=== PATIENT | female | born 1925 | race Caucasian/White ===

== ENCOUNTER 2016-08-07 08:54 | Emergency (ER) | payer MEDICARE, BC ==
[2016-08-07 09:28] LABS: Hematocrit 34.6 % (37.0-47.0); Hemoglobin 11.5 gm/dL (12.5-16.0); Mean Cell Volume 93.8 fl (78-100); Mean Corpuscular Hemoglobin 31.2 pg (27-31); Mean Corpuscular Hgb Conc 33.2 g/dl (32-36); Mean Platelet Volume 8.5 fl (6.0-9.5); Neutrophil # 6.5 K/mm3 (1.3-6.0); Neutrophil % 78.3 % (42-75.0); Platelet Count 386 K/mm3 (150-450); Red Blood Count 3.69 M/mm3 (4.2-5.4); Red Cell Distribution Width 14.6 % (11.5-14.0); White Blood Count 8.3 K/mm3 (4.0-10.5)
[2016-08-07 09:31] LABS: Urine Bilirubin 1 mg/dl (NEGATIVE); Urine Blood 25 /ul (NEGATIVE); Urine Ketone 15 mg/dL (NEGATIVE); Urine Nitrite Negative (NEGATIVE); Urine Protein 30 mg/dL (NEGATIVE); Urine Urobilinogen Normal (NORMAL); Urine pH 6.5 pH (5.0-7.0)
[2016-08-07 09:39] LABS: Urine Appearance Slightly Cloudy; Urine Color Dark Yellow; Urine WBC >50 /hpf (0-5)
[2016-08-07 09:40] LABS: Urine Bacteria 2+
[2016-08-07 09:41] LABS: Anion Gap 14.8 mmol/L (6.8-13.8); BUN/Creatinine Ratio 15.3 (9.0-21.6); Bilirubin, Total 0.8 mg/dL (0.0-1.1); Ca. Corrected For Albumin 8.8 mg/dL (8.4-10.2); Calcium * 8.3 mg/dL (7.9-10.9); Carbon Dioxide 25.1 mmol/L (24-32.6); Potassium 3.9 mmol/L (3.4-4.6); Total Protein 6.4 gm/dL (6.2-8.2)
--- NOTE | 2016-08-07 09:51 | ERNOTE ---
Neuro HPI ER Record Presenting Symptoms: confusion Time Seen by Provider: 08/07/16 09:35 Source: family, long term records Exam Limitations: dementia Immunizations: IMMUNIZATION HX Immunizations Up to Date Yes Allergies/Adverse Reactions: Allergies Allergy/AdvReac Type Severity Reaction Status Date / Time No Known Drug Allergies Allergy Verified 03/19/16 22:02 Home Medications: HOME MEDICATIONS Acetaminophen [Tylenol] 650 mg PO Q4H PRN 03/19/16 [Last Taken Unknown] Cranberry Fruit Extract [Cranberry] 300 mg PO DAILY 03/19/16 [Last Taken Unknown ] Donepezil HCl [Aricept] 5 mg PO HS 03/19/16 [Last Taken Unknown] Furosemide [Lasix] 40 mg PO BID 03/19/16 [Last Taken Unknown] HYDROcodone/ACETAMINOPHEN [[place] 5-325] 1 tab PO QID PRN 03/19/16 [Last Taken Unknown] LORazepam [Ativan] 0.5 mg IM Q4H PRN 03/19/16 [Last Taken Unknown] Lorazepam [Ativan] 0.5 mg PO Q4H 03/19/16 [Last Taken Unknown] Lovastatin [Altoprev] 10 mg PO DAILY 03/19/16 [Last Taken Unknown] Phenytoin Sodium Extended 100 mg PO HS 03/19/16 [Last Taken Unknown] Phenytoin Sodium Extended 200 mg PO DAILY 03/19/16 [Last Taken Unknown] Potassium Chloride 10 meq PO DAILY #30 tab.er.prt 03/19/16 [Last Taken Unknown] Ramipril 5 mg PO DAILY 03/19/16 [Last Taken Unknown] Bisacodyl [Dulcolax Suppository] 10 mg RC DAILY PRN 08/07/16 [Last Taken Unknown ] Haloperidol Lactate [Haldol] 5 mg IM PRN PRN 08/07/16 [Last Taken Unknown] Lamotrigine [Lamictal] 100 mg PO BID 08/07/16 [Last Taken Unknown] Magnesium Hydroxide [Milk Of Magnesia] 30 ml PO DAILY PRN 08/07/16 [Last Taken Unknown] Risperidone 2 mg PO HS 08/07/16 [Last Taken Unknown] Risperidone [Risperdal] 1 mg PO DAILY 08/07/16 [Last Taken Unknown] Risperidone [Risperdal] 5 mg PO DAILY 08/07/16 [Last Taken Unknown] Sennosides [Senokot] 17.2 mg PO DAILY 08/07/16 [Last Taken Unknown] - History of Present Illness Narrative: Patient is a long term resident and has dementia, but she has not been herself the last 36 hrs, not feeding herself or pushing herself around like usually. There is no history of falls or injury. The family states that she has had a lot of UTI's in the past Review of Systems - Review of Systems Constitutional: Absent: fever, chills ENT: Absent: nose congestion Respiratory: Absent: shortness of breath Cardiology: Absent: chest pain Gastrointestinal/Abdominal: Present: eating less. Absent: nausea Genitourinary: Present: no symptoms reported Skin: Absent: rash - Patient's Past Medical History Patient History - Medical: Anxiety, Dementia, Depression, GERD, Seizures, UTI'S , Other Patient History - Cardiac/Respiratory: Coronary Heart Disease, Hypertension, Hyperlipidemia, Other Patient History - Cancer: No Hx of Cancer - Social History Living Situations: long term Smoking Status: Never smoker Have you smoked in the past 12 months: No - Immunizations Immunizations Up to Date: Yes Physical Exam - Physical Exam General Appearance: Present: wd/wn, alert, no apparent distress, lethargic Eye Exam: Normal inspection: bilateral, PERRL: bilateral Ears, Nose, Throat: Present: other - mild eye lid edema, no erythema, still able to open eyes Neck: Present: normal inspection Respiratory: Present: no respiratory distress, normal breath sounds, no accessory muscle use, lungs clear Cardiovascular/Chest: Present: regular rate, rhythm, no murmur Gastrointestinal/Abdominal: Present: nontender, nondistended, soft Extremity Exam: Present: no edema Neurological Exam: Present: alert, disoriented to time, disoriented to place, disoriented to situation Skin Exam: Present: normal color, warm/dry ED Progress - Results and Orders Patient's Lab Results:: I have reviewed the patient's lab results. - Vital Signs Patient's Vital Signs:: I have reviewed the patient's vital signs. Vital Signs: Vital Signs 08/07/16 08/07/16 09:00 09:19 Temperature 35.7 C L Pulse Rate 80 90 Respiratory 14 Rate Blood Pressure 127/32 O2 Sat by Pulse 95 Oximetry - Progress/Reassessment Chief Complaint: Altered Mental Status Progress Note-Subjective: 08/07/16 10:02 discussed results with family. As patient is confused will give first dose of antibiotic IM then will send back to care center, family agreed with plan Departure Clinical Impression: UTI (urinary tract infection) Qualifiers: Urinary tract infection type: acute cystitis Hematuria presence: without hematuria Qualified Code(s): N30.00 - Acute cystitis without hematuria - Departure Disposition: [facility] Condition: Fair Referrals: Cory Marshall MD [Primary Care Provider] -
--- OUTSIDE RECORDS SUMMARY | 2016-08-07 09:58 | XMS REPORT | Continuity of Care Document ---
:1925 Author Organization [facility] ([facility]) Address [address] [place] [address] Phone [phone] Care Team Providers Name Role Phone Miguel Page Primary Care Provider [phone] Source Comments This disclosure is being made pursuant to the Care Everywhere program, applicable federal and state laws, and may not contain all informaitonavailable regarding this patient.[facility] ([facility]) Active Allergies and Adverse Reactions Allergen Noted Date Severity Reactions Comments No Known Drug Allergies 10/05/2008 NO REACTION Current Medications Prescription Sig. Disp. Refills Start Date End Date Status ESTROGENS,CONJUGATED Take 0.625 mg by Active (PREMARIN PO) mouth. RAMIPRIL (ALTACE PO) take 5 mg by mouth Active daily. phenytoin (DILANTIN Take 100 mg by mouth Active EXTENDED) 100 mg ER 2 times daily. 200 mg capsule in morning, 100 mg at night lovaSTATIN (MEVACOR) Take 10 mg by mouth Active 20 mg tablet every evening. MULTIVITAMIN WITH Take 1 Tab by mouth Active MINERALS (ONE-A-DAY 50 daily. PLUS PO) OTHER 1 Tab daily. Colon Active health Omeprazole 20 mg TbEC Take 1 Tab by mouth Active daily. aspirin (ASPIR-GEMMA) Take 1 Tab by mouth 30 Tab 6 12/20/2010 Active 325 mg EC tablet daily. Indications: DVT ppx gabapentin 300 mg Take 300 mg by mouth Active tablet 2 times daily. Biotin 10,000 mcg Cap Take by mouth daily. Active Cranberry 500 mg Cap Take by mouth daily. Active OTHER 0.5 Tabs as needed. Active Pain medications buPROPion (WELLBUTRIN Take 150 mg by mouth Active XL) 150 mg extended Every morning. 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 Pain in joint, shoulder region 11/15/2005 Cervicalgia 11/15/2005 Lumbago 11/15/2005 Immunizations Name Dates Previously Given Next Due Influenza, unspecified 06/10/2009 Pneumococcal, unspecified 06/10/2001 Social History Tobacco Use Types Packs/Day Years Used Date Never Smoker Smokeless Tobacco: Never Used Alcohol Use Drinks/Week oz/Week Comments No Last Filed Vital Signs Vital Sign Reading Time Taken Blood Pressure 137/77 12/20/2010 9:00 AM CDT Pulse 101 12/20/2010 9:00 AM CDT Temperature 36.7 C (98.1 F) 12/20/2010 9:00 AM CDT Respiratory Rate 20 12/20/2010 9:00 AM CDT Height 1.575 m (5' 2") 12/14/2010 2:00 PM CDT Weight 75.751 kg (167 lb) 07/04/2012 12:28 PM PLAN REP Body Mass Index 30.54 07/04/2012 12:28 PM PLAN REP Oxygen Saturation 99% 12/20/2010 9:00 AM CDT Plan of Care Health Maintenance Due Date Last Done Comments Hepatitis B Vaccine (1 of 3 - Primary Series) 1925 Tdap Vaccine 1938 Lipid Disorder Screening 1945 Td Vaccine 1945 Zoster Vaccine 1987 Pneumococcal Vaccine (1 of 2 - PCV13) 1992 Influenza Vaccine: Seasonal (#1) 01/09/2016 06/10/2009 Results from Last 3 Months Not on file
[2016-08-07 11:18] VITALS: BP 116/32
== END 2016-08-07 10:48 ==
LOC: ER 08:54
DX: F41.8 Other specified anxiety disorders (principal); F03.90 Unspecified dementia, unspecified severity, without behavioral disturbance, psychotic disturbance, mood disturbance, and anxiety; K21.9 Gastro-esophageal reflux disease without esophagitis; I10 Essential (primary) hypertension; E78.5 Hyperlipidemia, unspecified; I25.2 Old myocardial infarction